=== PATIENT | female | born 1940 | race Caucasian/White ===

== ENCOUNTER 2017-02-03 15:24 | Emergency (ER) | payer MEDICARE ==
[~2017-02-03] VITALS: Ht 180.3 cm; Wt 93.0 kg
[~2017-02-03 15:24] MED LIST: AMLODIPINE5 MG PO; ASPIRIN EC325 MG PO; ASPIRIN EC81 MG PO; BENAZEPRIL20 M1 OR; CALTRATE 600 PO; CARVEDILOL25 MG PO; CEPHALEXIN500 MG OR; CEPHALEXIN500 MG PO; CIPRO XR500 MG PO; CIPROFLOXACIN500 M1 PO; CIPROFLOXACN500 MG PO; CLONIDINE0.1 MG PO; COREG6.25 MG OR; COUMADIN5 MG PO; DIGOXIN0.125 MG OR; DIGOXIN0.125 MG PO; DULCOLAX10 MG RE; ECOTRIN325 MG OR; FLEET RE; FLEXERIL PO; FUROSEMIDE40 MG OR; FUROSEMIDE40 MG PO; HYDROCO/APAP1 TA9 PO; HYDROCODONE/IBU1 TA1 PO; KLOR-CON 1010 MEQ OR; KLOR-CON 1010 MEQ PO; LEVOTHYROXIN50 MCG OR; LORTAB 1010 MG PO; LOSARTAN POT100 MG PO; LOSARTAN POT50 MG PO; MILK OF MAG30 ML/UDC PO; MULTIVITAL-M PO; NEXIUM40 MG PO; NORCO1 TA1 PO; NORCO1 TA2 PO; NORCO1 TAB PO; NORMAL SALIN0.91 IV; OXYBUTYNIN5 MG OR; OXYBUTYNIN5 MG PO; PAROXETINE20 MG OR; PAROXETINE20 MG PO; PAROXETINE40 MG PO; SOTALOL HCL80 MG OR; TYLENOL325 M1 PO; TYLENOL325 MG PO; VANCOMYCIN HCL1 GM IV; WARFARIN2.5 MG OR; WARFARIN2.5 MG PO; WARFARIN4 MG OR; WARFARIN5 MG OR; WARFARIN5 MG PO; ZOFRAN ODT4 MG PO; [UNRECOGNIZED DRUG - OTHER] IV; [UNRECOGNIZED DRUG - OTHER] PO
[2017-02-03 16:33] VITALS: BP 138/76
== END 2017-02-03 16:40 | disposition home or self-care (01) ==
LOC: ED 15:24
DX: R04.0 Epistaxis (principal); I10 Essential (primary) hypertension; I25.10 Atherosclerotic heart disease of native coronary artery without angina pectoris; I48.91 Unspecified atrial fibrillation; E03.9 Hypothyroidism, unspecified; Z95.0 Presence of cardiac pacemaker; Z79.01 Long term (current) use of anticoagulants

== ENCOUNTER 2017-12-29 06:50 | Day surgery (SDC) | payer MEDICARE ==
[~2017-12-29] VITALS: Ht 180.3 cm; Wt 85.7 kg
[~2017-12-29 06:50] MED LIST changes: +CALTRATE 600+D1 CHW PO; +HYDROCODONE PO; +LEVOTHYROXIN50 MCG PO; +LOSARTAN POTASS50 MG PO; +OXYBUTYNIN5 M1 PO; +POTASSIUM CHLO10 MEQ PO
[2017-12-29 09:40] VITALS: BP 163/95
== END 2017-12-29 09:45 | disposition home or self-care (01) ==
LOC: ENDO 06:50 → ORM 09:15 → ENDO 09:45
PROVIDERS: ATTEND Surgery
PROC: 0DBN8ZX Excision of Sigmoid Colon, Via Natural or Artificial Opening Endoscopic, Diagnostic (ICD-10-PCS; principal; 2017-12-29)
PROC: 3E0H8GC Introduction of Other Therapeutic Substance into Lower GI, Via Natural or Artificial Opening Endoscopic (ICD-10-PCS; 2017-12-29)
DX: D12.5 Benign neoplasm of sigmoid colon (principal); K57.30 Diverticulosis of large intestine without perforation or abscess without bleeding; R91.1 Solitary pulmonary nodule; Z85.3 Personal history of malignant neoplasm of breast

== ENCOUNTER 2018-01-07 17:00 | Observation (INO) | payer MEDICARE ==
[~2018-01-07] VITALS: Ht 180.3 cm; Wt 85.7 kg
[2018-01-07] MEDS ORDERED: HYDROCODONE/ACE1 TAB PO (18:20)
[2018-01-07 19:25] LABS: HEMATOCRIT 35.1 % (37.0-47.0); HEMOGLOBIN 11.4 g/dl (12.0-16.0); IMMATURE GRANULOCYTES 0.5 % (0.0-1.0); MEAN CELL VOLUME 85.2 fL CALC (80.0-100.0); MEAN CORPUSCULAR HGB 27.7 pG CALC (26.0-32.0); MEAN CORPUSCULAR HGB CONC 32.5 g/L CALC (32.0-36.0); NEUT# 13.09 thou/uL (2.00-7.15); RED BLOOD COUNT 4.12 mill/uL (4.20-5.60); RED CELL DISTRI WIDTH 14.6 % (11.5-15.5)
[2018-01-07 19:34] LABS: ANION GAP 11 (6-22 (CALC)); BUN 11 mg/dL (8-23); BUN/CREATININE RATIO 18 (12-20 (CALC)); CARBON DIOXIDE 26 mmol/l (22-30); CHLORIDE 103 mmol/l (95-108); CREATININE 0.6 mg/dL (0.5-1.0); GFR > 60 ML/MIN (>=60 (CALC)); GFR FOR AFR.AMER. > 60 ML/MIN (>=60 (CALC)); POTASSIUM 4.4 mmol/l (3.5-5.1); SODIUM 136 mmol/l (137-146)
[2018-01-07 19:36] LABS: INFLUENZA A NONE DETECTED (NONE DETECT); INFLUENZA B NONE DETECTED (NONE DETECT)
[2018-01-07 20:02] LABS: URINE BILIRUBIN - DIPSTICK NEGATIVE (NEGATIVE); URINE BLOOD DIPSTICK TRACE-INTACT (NEGATIVE); URINE COLOR YELLOW; URINE GLUCOSE - DIPSTICK NEGATIVE (NEGATIVE); URINE KETONE NEGATIVE (NEGATIVE); URINE LEUK ESTERASE NEGATIVE (NEGATIVE); URINE NITRITE - DIPSTICK NEGATIVE (Negative); URINE PH 6.5 (4.5-8.0); URINE PROTEIN - DIPSTICK 30 mg/dL (NEG-TRACE); URINE UROBILINOGEN - DIPSTICK 0.2 E.U./dL (0.2)
[2018-01-07 20:14] LABS: URINE CLARITY CLEAR
[2018-01-07 20:28] LABS: URINE MUCUS FEW hpf (NONE-FEW); URINE SQUAMOUS EPITHELIAL CELL FEW EPI/hpf (0-FEW)
[2018-01-07 21:20] VITALS: BP 144/69
[2018-01-08 00:33] VITALS: BP 155/83
[2018-01-08 05:45] VITALS: BP 117/61
[2018-01-08 08:13] VITALS: BP 118/79
[2018-01-08 09:26] LABS: HEMATOCRIT 32.6 % (37.0-47.0); HEMOGLOBIN 10.6 g/dl (12.0-16.0); IMMATURE GRANULOCYTES 0.5 % (0.0-1.0); MEAN CORPUSCULAR HGB CONC 32.5 g/L CALC (32.0-36.0); NEUT# 11.64 thou/uL (2.00-7.15); RED BLOOD COUNT 3.79 mill/uL (4.20-5.60); RED CELL DISTRI WIDTH 14.5 % (11.5-15.5)
[2018-01-08 09:40] LABS: INTERNATIONAL NORMALIZED RATIO 2.3 RATIO (0.7-1.3); PROTHROMBIN TIME 25.6 SECONDS (9.0-12.5)
[2018-01-08 09:45] LABS: ANION GAP 12 (6-22 (CALC)); BUN 11 mg/dL (8-23); BUN/CREATININE RATIO 19 (12-20 (CALC)); CARBON DIOXIDE 28 mmol/l (22-30); CHLORIDE 106 mmol/l (95-108); CREATININE 0.6 mg/dL (0.5-1.0); GFR > 60 ML/MIN (>=60 (CALC)); GFR FOR AFR.AMER. > 60 ML/MIN (>=60 (CALC)); SODIUM 142 mmol/l (137-146)
[2018-01-08 09:47] LABS: CHOLESTEROL HDL RATIO 3.5 (<4.4 (CALC)); MAGNESIUM 1.9 mg/dL (1.6-2.3)
[2018-01-08 09:56] LABS: POTASSIUM 3.5 mmol/l (3.5-5.1)
[2018-01-08 19:20] VITALS: BP 119/70
[2018-01-09 04:30] VITALS: BP 120/74
[2018-01-09 05:01] LABS: HEMATOCRIT 34.6 % (37.0-47.0); HEMOGLOBIN 11.1 g/dl (12.0-16.0); IMMATURE GRANULOCYTES 0.6 % (0.0-1.0); MEAN CELL VOLUME 86.7 fL CALC (80.0-100.0); MEAN CORPUSCULAR HGB 27.8 pG CALC (26.0-32.0); MEAN CORPUSCULAR HGB CONC 32.1 g/L CALC (32.0-36.0); NEUT# 9.66 thou/uL (2.00-7.15); RED BLOOD COUNT 3.99 mill/uL (4.20-5.60); RED CELL DISTRI WIDTH 14.1 % (11.5-15.5)
[2018-01-09 05:05] LABS: INTERNATIONAL NORMALIZED RATIO 2.4 RATIO (0.7-1.3); PROTHROMBIN TIME 27.7 SECONDS (9.0-12.5)
[2018-01-09 05:09] LABS: ANION GAP 15 (6-22 (CALC)); BUN 18 mg/dL (8-23); BUN/CREATININE RATIO 31 (12-20 (CALC)); CARBON DIOXIDE 26 mmol/l (22-30); CHLORIDE 105 mmol/l (95-108); CREATININE 0.6 mg/dL (0.5-1.0); GFR > 60 ML/MIN (>=60 (CALC)); GFR FOR AFR.AMER. > 60 ML/MIN (>=60 (CALC)); MAGNESIUM 1.9 mg/dL (1.6-2.3); POTASSIUM 3.9 mmol/l (3.5-5.1); SODIUM 142 mmol/l (137-146)
[2018-01-09 07:19] VITALS: BP 122/62
[2018-01-09] MEDS ORDERED: PREDNISONE10 MG PO (11:31)
[2018-01-09] MEDS ORDERED: LEVAQUIN750 MG PO (11:31)
[2018-01-09 12:00] VITALS: BP 108/62
== END 2018-01-09 14:00 | disposition home or self-care (01) ==
LOC: ED 17:00 → ED-I 20:00 → ED 20:21 → MS2 20:22
PROVIDERS: Family Medicine; Nurse Practitioner Family; ADMIT Internal Medicine; ATTEND Internal Medicine
DX: J44.0 Chronic obstructive pulmonary disease with (acute) lower respiratory infection (principal); J18.9 Pneumonia, unspecified organism; I10 Essential (primary) hypertension; F41.9 Anxiety disorder, unspecified; F32.9 Major depressive disorder, single episode, unspecified; E03.9 Hypothyroidism, unspecified; I48.2 Chronic atrial fibrillation; G89.29 Other chronic pain; M54.9 Dorsalgia, unspecified; E55.9 Vitamin D deficiency, unspecified; Z85.3 Personal history of malignant neoplasm of breast; Z77.22 Contact with and (suspected) exposure to environmental tobacco smoke (acute) (chronic); Z95.0 Presence of cardiac pacemaker; Z79.01 Long term (current) use of anticoagulants

== ENCOUNTER 2018-01-19 07:43 | Emergency (ER) | payer MEDICARE ==
[~2018-01-19] VITALS: Ht 180.3 cm; Wt 85.0 kg
[~2018-01-19 07:43] MED LIST changes: +HYDROCODONE/ACE1 TAB PO; +LEVAQUIN750 MG PO; +PREDNISONE10 MG PO
[2018-01-19 09:29] VITALS: BP 166/84
== END 2018-01-19 09:46 | disposition home or self-care (01) ==
LOC: ED 07:43
DX: S39.012A Strain of muscle, fascia and tendon of lower back, initial encounter (principal); M47.817 Spondylosis without myelopathy or radiculopathy, lumbosacral region; M48.54XA Collapsed vertebra, not elsewhere classified, thoracic region, initial encounter for fracture; Z95.0 Presence of cardiac pacemaker; I10 Essential (primary) hypertension; I48.91 Unspecified atrial fibrillation; Z79.01 Long term (current) use of anticoagulants

== ENCOUNTER 2018-02-09 08:17 | Day surgery (SDC) | payer MEDICARE ==
[~2018-02-09] VITALS: Ht 180.3 cm; Wt 84.4 kg
[~2018-02-09 08:17] MED LIST changes: +FUROSEMIDE20 MG PO
[2018-02-09 11:09] VITALS: BP 141/76
== END 2018-02-09 11:25 | disposition home or self-care (01) ==
LOC: ENDO 08:17
PROVIDERS: ATTEND Surgery
PROC: 0DBP7ZZ Excision of Rectum, Via Natural or Artificial Opening (ICD-10-PCS; principal; 2018-02-09)
DX: K62.1 Rectal polyp (principal); R91.1 Solitary pulmonary nodule; Z85.3 Personal history of malignant neoplasm of breast; Z90.13 Acquired absence of bilateral breasts and nipples
CPT/HCPCS: J2710

== ENCOUNTER 2020-08-13 16:15 | Observation (INO) | payer MEDICARE ==
[~2020-08-13] VITALS: Ht 180.3 cm; Wt 62.6 kg
--- NOTE | 2020-08-13 17:00 | NUR ---
PT ARRIVES TO ROOM 271 VIA WHEELCHAIR FROM [facility] A DIRECT ADMIT FOR SUPERTHERAPEUTIC INR. PT PLACED INTO GOWN, ORDERS REVIEWED WITH PT, IV STARTED WITH BLOOD DRAW. PT ASKED TO CALL IF SHE NEEDS TO GO TO [place], AGREES THAT SHE WILL CALL BEFORE ATTEMPTING ON HER OWN. DANGERS OF HIGH INR REVIEWED WITH PT.
[2020-08-13 17:05] VITALS: BP 134/78
[2020-08-13 17:31] LABS: HEMATOCRIT 37.8 % (37.0-47.0); HEMOGLOBIN 11.9 g/dl (12.0-16.0); IMMATURE GRANULOCYTES 0.2 % (0.0-5.0); MEAN CELL VOLUME 88.3 fL CALC (80.0-100.0); MEAN CORPUSCULAR HGB 27.8 pG CALC (26.0-32.0); MEAN CORPUSCULAR HGB CONC 31.5 g/dL CAL (32.0-36.0); NEUT# 6.85 thou/uL (2.00-7.15); RED BLOOD COUNT 4.28 mill/uL (4.20-5.60)
[2020-08-13 17:47] LABS: ALBUMIN 3.7 g/dL (3.2-5.0); ALKALINE PHOSPHATASE 92 u/l (38-126); ANION GAP 10 (6-22 (CALC)); BILIRUBIN, TOTAL 0.5 mg/dL (0.0-1.4); BUN 26 mg/dL (8-23); BUN/CREATININE RATIO 27 (12-20 (CALC)); CARBON DIOXIDE 31 mmol/l (22-30); CHLORIDE 101 mmol/l (95-108); GFR 54 ML/MIN (>=60 (CALC)); GFR FOR AFR.AMER. > 60 ML/MIN (>=60 (CALC)); POTASSIUM 4.1 mmol/l (3.5-5.1); SGOT/AST 25 u/l (9-36); SODIUM 139 mmol/l (137-146); TOTAL PROTEIN 7.2 g/dL (6.3-8.2)
[2020-08-13 19:00] VITALS: BP 140/69
--- NOTE | 2020-08-13 19:00 | NUR ---
REPORT RECEIVED FROM Dennis COOL RN, CARE OF PT ASSUMED AT THIS TIME.
--- NOTE | 2020-08-13 20:15 | NUR ---
PHYSICAL ASSESMENT COMPLETE. PT CURRENTLY DENIES PAIN OR DISCOMFORT. SCHEDULED MEDS ADMINISTERED, SEE E-MAR. WARM BLANKET AND HOT TEA PROVIDED PER PTS REQUEST. PT DENIES FURTHER NEEDS AT THIS TIME. ONE UNIT PRBC PENDING FROM ANOTHER FACILITY. PLAN OF CARE REVIEWED, PT DENIES QUESTIONS, VERBALIZES UNDERSTANDING. ITEMS WITHIN REACH, BED LOCKED IN LOW POSITION W/ BEDRAILS UP X2. CALL OLSEN WITHIN REACH, AGREES TO CALL PRN.
--- NOTE | 2020-08-14 00:15 | NUR ---
PT SITTING UP IN BED WATCHING TV. DENIES NEEDS AT THIS TIME. CALL OLSEN REMAINS WITHIN REACH, AGREES TO CALL PRN.
[2020-08-14 00:40] VITALS: BP 138/78
--- NOTE | 2020-08-14 04:40 | NUR ---
PT APPEARS TO BE SLEEPING COMFORTABLY, NO APPARENT DISTRESS, RESPIRATIONS REGULAR AND UNLABORED. ITEMS REMAIN WITHIN REACH, BED REMAINS LOCKED IN LOW POSITION W/ BEDRAILS UP X2. CALL OLSEN REMAINS WITHIN REACH.
[2020-08-14 05:01] VITALS: BP 148/81
[2020-08-14 05:27] LABS: HEMATOCRIT 37.9 % (37.0-47.0); HEMOGLOBIN 11.8 g/dl (12.0-16.0); IMMATURE GRANULOCYTES 0.4 % (0.0-5.0); MEAN CELL VOLUME 88.3 fL CALC (80.0-100.0); MEAN CORPUSCULAR HGB 27.5 pG CALC (26.0-32.0); MEAN CORPUSCULAR HGB CONC 31.1 g/dL CAL (32.0-36.0); NEUT# 6.77 thou/uL (2.00-7.15); RED BLOOD COUNT 4.29 mill/uL (4.20-5.60); RED CELL DISTRI WIDTH 13.8 % (11.5-15.5)
[2020-08-14 06:21] LABS: INTERNATIONAL NORMALIZED RATIO 2.4 RATIO (0.7-1.3); PROTHROMBIN TIME 23.4 SECONDS (9.0-12.5)
[2020-08-14 07:10] VITALS: BP 151/86
--- NOTE | 2020-08-14 07:10 | NUR ---
PT SITTING IN BED. A&O X3. NO DISTRESS NOTED. PT DENIES ANY PAIN AT THIS TIME. [place]ISTED [place] [facility]ADY SLOW GAIT OBSERVED. NO OTHER NEEDS AT THIS TIME. ASSESSMENT COMPLETED. DISCUSSED POC. CALL LIGHT IN REACH. CONTINUE TO MONITOR.
[2020-08-14 09:37] VITALS: BP 151/86
[2020-08-14] MEDS ORDERED: JANTOVEN2.5 MG PO (10:36)
[2020-08-14] MEDS ORDERED: WARFARIN5 MG PO (10:37)
[2020-08-14] MEDS ORDERED: [UNRECOGNIZED DRUG - OTHER] PO (10:41)
--- NOTE | 2020-08-14 12:22 | NUR ---
Discharge instructions given. Patient verbalizes understanding of same. Pt encouraged to return if worsening symptoms arrise. Explained pt new warfarin dosages and the days. Encouraged pt to follow up with pcp and monitor INR levels frequently. Discharged in stable condition via wheelchair to home accompanied by staff and spouse. All belongings sent with pt.
== END 2020-08-14 12:23 | disposition home or self-care (01) ==
LOC: MS2 16:15
PROVIDERS: ADMIT Internal Medicine; ATTEND Internal Medicine
DX: R79.1 Abnormal coagulation profile (principal); T45.515A Adverse effect of anticoagulants, initial encounter; I48.20 Chronic atrial fibrillation, unspecified; F41.9 Anxiety disorder, unspecified; F32.9 Major depressive disorder, single episode, unspecified; E03.9 Hypothyroidism, unspecified; I10 Essential (primary) hypertension; E55.9 Vitamin D deficiency, unspecified; Z95.0 Presence of cardiac pacemaker; Z23 Encounter for immunization; Z51.81 Encounter for therapeutic drug level monitoring; Z79.01 Long term (current) use of anticoagulants

== ENCOUNTER 2020-12-08 10:32 | Emergency (ER) | payer MEDICARE ==
[~2020-12-08] VITALS: Ht 180.3 cm; Wt 69.5 kg
[~2020-12-08 10:32] MED LIST changes: +JANTOVEN2.5 MG PO; +[UNRECOGNIZED DRUG - OTHER] PO
[2020-12-08 11:28] LABS: HEMATOCRIT 35.5 % (37.0-47.0); HEMOGLOBIN 11.1 g/dl (12.0-16.0); IMMATURE GRANULOCYTES 0.7 % (0.0-5.0); MEAN CORPUSCULAR HGB 26.9 pG CALC (26.0-32.0); MEAN CORPUSCULAR HGB CONC 31.3 g/dL CAL (32.0-36.0); NEUT# 8.02 thou/uL (2.00-7.15); RED BLOOD COUNT 4.13 mill/uL (4.20-5.60); RED CELL DISTRI WIDTH 15.4 % (11.5-15.5)
[2020-12-08 11:49] LABS: ACT PARTIAL THROMBO TIME 44.2 SECONDS (20.0-32.5); ALBUMIN 3.4 g/dL (3.2-5.0); ALKALINE PHOSPHATASE 69 u/l (38-126); ANION GAP 8 (6-22 (CALC)); BILIRUBIN, TOTAL 0.6 mg/dL (0.0-1.4); BUN 10 mg/dL (8-23); BUN/CREATININE RATIO 16 (12-20 (CALC)); CARBON DIOXIDE 33 mmol/l (22-30); CHLORIDE 100 mmol/l (95-108); CREATININE 0.6 mg/dL (0.5-1.0); GFR > 60 ML/MIN (>=60 (CALC)); GFR FOR AFR.AMER. > 60 ML/MIN (>=60 (CALC)); POTASSIUM 3.7 mmol/l (3.5-5.1); SGOT/AST 20 u/l (9-36); SODIUM 137 mmol/l (137-146); TOTAL PROTEIN 6.5 g/dL (6.3-8.2)
[2020-12-08 12:14] LABS: INTERNATIONAL NORMALIZED RATIO 6.3 RATIO (0.7-1.3); PROTHROMBIN TIME 57.7 SECONDS (9.0-12.5)
[2020-12-08 12:45] VITALS: BP 132/76
== END 2020-12-08 12:45 | disposition home or self-care (01) ==
LOC: ED 10:32
DX: S80.11XA Contusion of right lower leg, initial encounter (principal); R79.1 Abnormal coagulation profile; T45.515A Adverse effect of anticoagulants, initial encounter; I10 Essential (primary) hypertension; F41.9 Anxiety disorder, unspecified; F32.9 Major depressive disorder, single episode, unspecified; I48.91 Unspecified atrial fibrillation; W01.0XXA Fall on same level from slipping, tripping and stumbling without subsequent striking against object, initial encounter; Y92.009 Unspecified place in unspecified non-institutional (private) residence as the place of occurrence of the external cause; Z79.01 Long term (current) use of anticoagulants; Z95.0 Presence of cardiac pacemaker

== ENCOUNTER 2021-01-01 10:33 | Inpatient (IN) | payer MEDICARE ==
[~2021-01-01] VITALS: Ht 180.3 cm; Wt 68.0 kg
--- NOTE | 2021-01-01 10:33 | NUR ---
PATIENT TO ROOM VIA WHEELCHAIR AND PHYSICIAN NOTIFIED OF PATIENT STATUS
--- NOTE | 2021-01-01 11:11 | NUR ---
MED REC COMPLETED AT THIS TIME PER PT MEDS HAVE NOT CHANGED IN TWENTY YEARS AND TOOK ALL OF THEM THIS MORNING.
[2021-01-01 11:37] LABS: HEMATOCRIT 34.3 % (37.0-47.0); HEMOGLOBIN 10.4 g/dl (12.0-16.0); IMMATURE GRANULOCYTES 0.5 % (0.0-5.0); MEAN CELL VOLUME 88.4 fL CALC (80.0-100.0); MEAN CORPUSCULAR HGB 26.8 pG CALC (26.0-32.0); MEAN CORPUSCULAR HGB CONC 30.3 g/dL CAL (32.0-36.0); NEUT# 6.26 thou/uL (2.00-7.15); RED BLOOD COUNT 3.88 mill/uL (4.20-5.60); RED CELL DISTRI WIDTH 15.1 % (11.5-15.5)
[2021-01-01 11:51] LABS: ALBUMIN 3.5 g/dL (3.2-5.0); ALKALINE PHOSPHATASE 71 u/l (38-126); ANION GAP 9 (6-22 (CALC)); BUN 16 mg/dL (8-23); BUN/CREATININE RATIO 22 (12-20 (CALC)); CARBON DIOXIDE 36 mmol/l (22-30); CHLORIDE 101 mmol/l (95-108); CREATININE 0.7 mg/dL (0.5-1.0); GFR > 60 ML/MIN (>=60 (CALC)); GFR FOR AFR.AMER. > 60 ML/MIN (>=60 (CALC)); POTASSIUM 3.8 mmol/l (3.5-5.1); SGOT/AST 17 u/l (9-36); SODIUM 141 mmol/l (137-146); TOTAL PROTEIN 6.5 g/dL (6.3-8.2)
[2021-01-01 11:52] LABS: BILIRUBIN, TOTAL 1.1 mg/dL (0.0-1.4)
[2021-01-01 12:03] LABS: MYOGLOBIN 37 ng/mL (0 - 62)
--- NOTE | 2021-01-01 12:21 | NUR ---
PT TO RADIOLOGY AT THIS TIME FOR CT SCAN
--- NOTE | 2021-01-01 13:30 | NUR ---
PT RESTING COMFORTABKLY ON STRETCHER. PT AWARE OF PENDING ADMIT. SPOUSE AT BEDSIDE WILL CONTINUE TO MONITOR.
--- NOTE | 2021-01-01 14:15 | NUR ---
PT ASSISTED UP TO BATHROOM UA SAMPLE OBTAINED. PT THEN ASSISTED BACK TO BED. APPLE JUICE PROVIDED
--- NOTE | 2021-01-01 14:31 | NUR ---
REPORT CALLED TO CARMINE WADE.
--- NOTE | 2021-01-01 14:40 | NUR ---
PT TO MED SURG ROOM 262 VIA WHEELCHAIR
--- NOTE | 2021-01-01 14:42 | NUR ---
PT ARRIVED FROM ER VIA WC WITH STAFF. IV SITE AND TELE MONITOR IN PLACE.
[2021-01-01 15:00] VITALS: BP 117/69
[2021-01-01 15:12] LABS: URINE BILIRUBIN - DIPSTICK NEGATIVE (NEGATIVE); URINE BLOOD DIPSTICK NEGATIVE (NEGATIVE); URINE COLOR YELLOW; URINE GLUCOSE - DIPSTICK NEGATIVE (NEGATIVE); URINE KETONE NEGATIVE (NEGATIVE); URINE LEUK ESTERASE NEGATIVE (NEGATIVE); URINE NITRITE - DIPSTICK NEGATIVE (Negative); URINE PROTEIN - DIPSTICK 30 mg/dL (NEG-TRACE); URINE SPECIFIC GRAVITY 1.015
[2021-01-01 15:22] LABS: URINE SQUAMOUS EPITHELIAL CELL FEW EPI/hpf (0-FEW)
--- NOTE | 2021-01-01 15:25 | NUR ---
ASSESSMENT IS COMPLETED: IV SITE IS FREE FROM REDNESS OR EDEMA. HR IS REG,PULSES ARE STRONG X4, ABD IS SOFT WITH ACTIVE BS. TELE MONITOR IN PLACE/ BREATH SOUNDS ARE CLEAR, O2 @ 4LITERS WITH NC.
--- NOTE | 2021-01-01 18:04 | NUR ---
PT HAS BEEN AMBULATING IN THE ROOM. IV SITE IS FREE FROM REDNESS OR EDEMA.
[2021-01-01 18:51] VITALS: BP 113/66
--- NOTE | 2021-01-01 19:00 | NUR ---
REPORT RECEIVED FROM Jonna WISEMAN LPN, CARE OF PT ASSUMED AT THIS TIME.
--- NOTE | 2021-01-01 20:50 | NUR ---
PT SUPINE IN BED, SITS UP INDEPENDENTLY. PHYSICAL ASSESMENT COMPLETE. A/0X3, PLEASANT AND COOPERATIVE. RESPIRATIONS REGULAR AND UNLABORED AT REST. PT ON ROOM AIR. LUNGS CLEAR WITH DIMINISHED BASES ON LEFT SIDE AND WHEEZES WITH DIMINISHED BASES ON RIGHT SIDE. REPORTS INTERMITTENT DRY COUGH. DENIES OR GI SYMPTOMS/COMPLAINTS. SKIN APPEARS INTACT. R-AC #20G PATENT AND SALINE LOCKED. PLAN OF CARE REVIEWED, PT IS ENGAGED AND PARTICIPATES IN TEACHING. VERBALIZES UNDERSTANDING AND DENIES QUESTIONS. PT DENIES NEEDS AT THIS TIME. CALL OLSEN WITHIN REACH, AGREES TO CALL PRN. BED LOCKED IN LOW POSITION WITH BEDRAILS UP X2.
[2021-01-01 23:55] VITALS: BP 118/71
--- NOTE | 2021-01-02 | NUR ---
PT APPEARS TO BE SLEEPING COMFORTABLY, LAYING IN BED WITH EYES CLOSED, RESPIRATIONS REGULAR AND UNLABORED, NO APPARENT DISTRESS. CALL OLSEN REMAIN WITHIN REACH. BED REMAINS LOCKED IN LOW POSITION WITH BEDRAIL UP X2.
[2021-01-02 04:00] VITALS: BP 113/72
[2021-01-02 05:50] LABS: HEMATOCRIT 37.6 % (37.0-47.0); HEMOGLOBIN 11.2 g/dl (12.0-16.0); IMMATURE GRANULOCYTES 0.9 % (0.0-5.0); MEAN CELL VOLUME 88.5 fL CALC (80.0-100.0); MEAN CORPUSCULAR HGB 26.4 pG CALC (26.0-32.0); MEAN CORPUSCULAR HGB CONC 29.8 g/dL CAL (32.0-36.0); NEUT# 4.17 thou/uL (2.00-7.15); RED BLOOD COUNT 4.25 mill/uL (4.20-5.60)
[2021-01-02 06:20] LABS: MAGNESIUM 1.9 mg/dL (1.6-2.3)
[2021-01-02 06:27] LABS: CHOLESTEROL HDL RATIO 3.2 (<4.4 (CALC)); DIGOXIN 1.3 ng/mL (0.8-2.0)
[2021-01-02 06:30] LABS: INTERNATIONAL NORMALIZED RATIO 5.4 RATIO (0.7-1.3)
--- NOTE | 2021-01-02 06:37 | NUR ---
PT/INR 54/5.4, REPORTED TO DR. HERRERA, COUMADIN ALREADY ON HOLD, WILL CONT' TO HOLD, NO FURTHER ORDERS AT THIS TIME.
--- NOTE | 2021-01-02 07:05 | NUR ---
PT ARTUR AEROSOLIZED BRONCHODILATOR HERAPY WELL. NO ACUTE DISTRESS NOTED. VITAL SIGNS STABLE. GENERATOR ASSEMBLER TO MONITOR. WEANED O2 TO 1LPM NC PER PT SPO2.
[2021-01-02 07:50] VITALS: BP 115/56
--- NOTE | 2021-01-02 07:50 | NUR ---
ASSESSMENT IS COMPLETED: IV SITE IS FREE FROM REDNESS OR EDEMA. HR IS REG,PULSES ARE STRONG X4, ABD IS SOFT WITH ACTIVE BS. BREATH SOUNDS ARE WHEEZINGAUDIBLE, DIMINSHED AND CLEAR, O2 @ 2 LITERS WITH NC. PT DID HAVE O2 OFF LAST NIGHT. AND AMBULATED IN THE ROOM.
--- NOTE | 2021-01-02 10:00 | NUR ---
RAC IV SITE BECAME A LITTLE PINK, AND WAS LEAKING , IV WAS TAKEN OUT. CATHETER INTACT.
--- NOTE | 2021-01-02 10:05 | NUR ---
NEW IV SITE IN LW WITH #22 BY Christelle TAMAYO AND PT TOLERATED WELL.
[2021-01-02 10:30] VITALS: BP 115/68
[2021-01-02] MEDS ORDERED: TRELEGY ELLIPTA1 AER IN (11:32)
[2021-01-02] MEDS ORDERED: HYDROCO/APAP1 TA9 PO (11:35)
--- NOTE | 2021-01-02 12:00 | NUR ---
PT HAS BEEN RELAXING IN BED WITH NO DISTRESS NOTED. IV SITE IS FREE FROM RENDESS OR EDEMA.
--- NOTE | 2021-01-02 12:03 | NUR ---
PHYSICAL THERAPY IN TO VISIT WITH PT. NEEDS TO HAVE O2
[2021-01-02 15:00] VITALS: BP 114/60
--- NOTE | 2021-01-02 16:00 | NUR ---
PT IS RELAXING IN BED WITH NO DISTRESS NOTED. IV SITE IS FREE FROM REDNESS OR EDEMA.
--- NOTE | 2021-01-02 16:12 | NUR ---
pt c exp whz in RUL and [facility]. no acute signs of distress. pt talking in full sentences and appropriate orientation. vital signs stable. o2 weaned today. pt veronica well. senior it specialist to monitor.
--- NOTE | 2021-01-02 19:00 | NUR ---
REPORT RECEIVED FROM Jonna WISEMAN LPN, CARE OF PT ASSUMED AT THIS TIME.
[2021-01-02 19:08] VITALS: BP 120/81
--- NOTE | 2021-01-02 20:50 | NUR ---
PT LAYING IN BED SEMI-FOWLERS, SITS UP INDEPENDENTLY. PHYSICAL ASSESMENT COMPLETE. A/0X3, PLEASANT AND COOPERATIVE. RESPIRATIONS REGULAR AND UNLABORED AT REST. PT ON ROOM AIR. LUNGS CLEAR WITH DIMINISHED BASES ON LEFT SIDE AND WHEEZES WITH DIMINISHED BASES ON RIGHT SIDE. REPORTS INTERMITTENT DRY COUGH. DENIES OR GI SYMPTOMS/COMPLAINTS. SKIN APPEARS INTACT. L-WRIST #22G PATENT AND SALINE LOCKED. SCHEDULED MEDICATIONS ADMINISTERED, SEE E-MAR.PLAN OF CARE REVIEWED, PT IS ENGAGED AND PARTICIPATES IN TEACHING. VERBALIZES UNDERSTANDING AND DENIES QUESTIONS. PT DENIES NEEDS AT THIS TIME. CALL OLSEN WITHIN REACH, AGREES TO CALL PRN. BED LOCKED IN LOW POSITION WITH BEDRAILS UP X2.
[2021-01-03] VITALS: BP 125/60
[2021-01-03 04:42] VITALS: BP 120/78
[2021-01-03 05:46] LABS: HEMATOCRIT 35.8 % (37.0-47.0); HEMOGLOBIN 10.6 g/dl (12.0-16.0); MEAN CELL VOLUME 88.6 fL CALC (80.0-100.0); MEAN CORPUSCULAR HGB 26.2 pG CALC (26.0-32.0); MEAN CORPUSCULAR HGB CONC 29.6 g/dL CAL (32.0-36.0); RED BLOOD COUNT 4.04 mill/uL (4.20-5.60); RED CELL DISTRI WIDTH 15.1 % (11.5-15.5)
[2021-01-03 06:16] LABS: ANION GAP 10 (6-22 (CALC)); BUN 34 mg/dL (8-23); BUN/CREATININE RATIO 41 (12-20 (CALC)); CARBON DIOXIDE 33 mmol/l (22-30); CHLORIDE 100 mmol/l (95-108); CREATININE 0.8 mg/dL (0.5-1.0); GFR > 60 ML/MIN (>=60 (CALC)); GFR FOR AFR.AMER. > 60 ML/MIN (>=60 (CALC)); POTASSIUM 4.2 mmol/l (3.5-5.1); SODIUM 139 mmol/l (137-146)
[2021-01-03 06:20] LABS: INTERNATIONAL NORMALIZED RATIO 3.7 RATIO (0.7-1.3); PROTHROMBIN TIME 37.3 SECONDS (9.0-12.5)
--- NOTE | 2021-01-03 07:24 | NUR ---
PT AT BEDSIDE
--- NOTE | 2021-01-03 08:06 | NUR ---
DR BROWN AT BEDSIDE
--- NOTE | 2021-01-03 08:07 | NUR ---
PT RESTING IN BED COMFORTABLY. SPEAKING IN FULL SENTENCES. NAD. VSS. EDITOR MANAGING DIRECTOR TO MONITOR.
[2021-01-03 08:15] VITALS: BP 137/78
--- NOTE | 2021-01-03 08:15 | NUR ---
RECIEVED REPORT FROM RONI HUBBARD. PT RESTING IN SEMI FOLWERS POSITION. PT IS A/O X3. ASSESSMENT AND VITALS COMPLETED. BP 137/78, HR 70, O2 98% ON 2L NC. RESPIRATIONS ARE EVEN AND UNLABORED WITH NO DISTRESS NOTED. LUNG SOUND ARE CLEAR WITH SOME WHEEZING. HEART RHYTHM NORMAL WITH TELE IN PLACE. BOWEL SOUNDS ARE HYPOACTIVE. RADIAL PULSES STRONG. PEDAL PULSES WEAK. #22G LW FLUSHED, SITE LEAKING. NEW SITE TO BE OBTAINED. SKIN IS WARM AND INTACT WITH SCATTERED BRUISING NOTED. PT DENEIS OF ANY PAINS OR DISCOMFORTS AT THIS TIME. ALL SAFETY PRECAUTIONS ARE IN PLACE WITH CALL LIGHT IN REACH. WILL CONTINUE TO MONITOR.
--- NOTE | 2021-01-03 09:31 | NUR ---
ATTEMPTED TO START NEW IV, UNSUCCESSFUL X2.
--- NOTE | 2021-01-03 10:13 | NUR ---
#24 TO LAC INITIATED BY THIS PULLER MACHINE X2 ATTEMPTS. PT TOLERATED WELL. IV HEALTHY AND PATENT.
--- NOTE | 2021-01-03 10:13 | NUR ---
PT note Patient is seen for gait training and gait assessment. She is able to transfer out of bed independently to stand. She did not require an AD but did require NURSE OBGYN of 1 for ambualtion in room . She ambulated about 40 feet and was limited by dyspnea. She did not have her o2 in place and has told me she uses it intermittently. Her Am Pac score is unchanged from eval but tells me she would like to go home with home health. I agree with this as she is doing well funcitonally but needs continued rehab for strengthening and endurance training
[2021-01-03 10:30] VITALS: BP 130/66
--- NOTE | 2021-01-03 12:29 | NUR ---
#24G IN RAC INFILTRATED. IV THERAPY AT BEDSIDE TO ASSIST WITH NEW IV INSERTION.
--- NOTE | 2021-01-03 12:51 | NUR ---
NEW #24G STARTED IN LEFT HAND, SITE APPEARS HEALTHY AND PATENT. ANTIBIOTICS CONTINUED. #24G IN LAC REMOVED WITH CATHATER STILL INTACT. WILL CONTINUE TO MONITOR.
[2021-01-03 14:39] VITALS: BP 113/68
--- NOTE | 2021-01-03 15:44 | NUR ---
PT RESTING IN SEMI FOWLERS POSITION. RESPIRATIONS ARE EVEN AND UNLABORED ON 2L NC. #24G IN LH REMAINS.TELE MONITORING IN PLACE. PT DENIES OF ANY PAINS OR DISCOMFORTS AT THIS TIME. ALL SAFETY PRECAUTIONS ARE IN PLACE WITH CALL LIGHT IN REACH. WILL CONTINUE TO MONITOR.
--- NOTE | 2021-01-03 19:00 | NUR ---
REPORT RECEIVED FROM Marcos ROBERTS LPN, CARE OF PT ASSUMED AT THIS TIME.
[2021-01-03 19:30] VITALS: BP 120/66
--- NOTE | 2021-01-03 20:30 | NUR ---
PT LAYING IN BED SEMI-FOWLERS, SITS UP INDEPENDENTLY. PHYSICAL ASSESMENT COMPLETE. A/0X2, DISORIENTED TO PLACE BUT EASILY RE-ORIENTS, PLEASANT AND COOPERATIVE. RESPIRATIONS REGULAR AND UNLABORED AT REST. PT ON 2L 02 VIA NC. LUNGS CLEAR WITH DIMINISHED BASES BILATERALLY. DENIES SOB OR COUGH. DENIES OR GI SYMPTOMS/COMPLAINTS. SKIN APPEARS INTACT. L-WRIST #22G PATENT AND SALINE LOCKED. SCHEDULED MEDICATIONS ADMINISTERED, SEE E-MAR.PLAN OF CARE REVIEWED, PT IS ENGAGED AND PARTICIPATES IN TEACHING. VERBALIZES UNDERSTANDING AND DENIES QUESTIONS. PT DENIES NEEDS AT THIS TIME. CALL OLSEN WITHIN REACH, AGREES TO CALL PRN. BED LOCKED IN LOW POSITION WITH BEDRAILS UP X2.
[2021-01-04] VITALS: BP 113/63
[2021-01-04 04:10] VITALS: BP 117/64
[2021-01-04 05:33] LABS: HEMOGLOBIN 10.8 g/dl (12.0-16.0); IMMATURE GRANULOCYTES 0.6 % (0.0-5.0); MEAN CELL VOLUME 89.3 fL CALC (80.0-100.0); MEAN CORPUSCULAR HGB 26.8 pG CALC (26.0-32.0); NEUT# 7.74 thou/uL (2.00-7.15); RED BLOOD COUNT 4.03 mill/uL (4.20-5.60); RED CELL DISTRI WIDTH 15.2 % (11.5-15.5)
[2021-01-04 06:14] LABS: ALBUMIN 3.5 g/dL (3.2-5.0); ALKALINE PHOSPHATASE 60 u/l (38-126); BILIRUBIN, TOTAL 0.7 mg/dL (0.0-1.4); BUN 41 mg/dL (8-23); BUN/CREATININE RATIO 59 (12-20 (CALC)); CARBON DIOXIDE 33 mmol/l (22-30); CHLORIDE 99 mmol/l (95-108); CREATININE 0.7 mg/dL (0.5-1.0); GFR > 60 ML/MIN (>=60 (CALC)); GFR FOR AFR.AMER. > 60 ML/MIN (>=60 (CALC)); SGOT/AST 18 u/l (9-36); TOTAL PROTEIN 6.6 g/dL (6.3-8.2)
[2021-01-04 06:16] LABS: ANION GAP 11 (6-22 (CALC)); SODIUM 139 mmol/l (137-146)
--- NOTE | 2021-01-04 07:00 | NUR ---
RECIEVED REPORT FROM RONI HUBBARD
[2021-01-04 07:50] VITALS: BP 130/75
--- NOTE | 2021-01-04 07:50 | NUR ---
PT RESTING IN LOW FOWLERS POSITION. PT IS A/O X2. ASSESSMENT AND VITALS COMPLETED. BP 130/75, HR 82, O2 80% ON ROOM AIR. 2L NC REAPPLIED, O2 SAT 93%. RESPIRATIONS ARE EVEN AND UNLABORED WITH NO DISTRESS NOTED. LUNG SOUNDS ARE CLEAR. HEART RHYTHM NORMAL WITH TELE IN PLACE. BOWEL SOUNDS ARE ACTIVE. RADIAL AND PEDAL PULSES ARE STRONG. TRACE EDEMA NOTED TO BLE. HEMATOME NOTED TO RIGHT ARDON, SKIN IS REDDENED BUT INTACT. PT DENIES OF ANY PAINS OR DISCOMFORTS AT THIS TIME. ALL SAFETY PRECAUTIONS ARE IN PLACE WITH CALL LIGHT IN REACH AND BED ALARM ACTIVTED. PT ENCOURAGED TO CALL FOR ASSITANCE. WILL CONTINUE TO MONITOR.
--- NOTE | 2021-01-04 08:39 | NUR ---
PT SITTING ON SIDE OF BED, TALKING AND RESTING COMFORTABLY. NAD. VSS. CROSSWORD PUZZLE MAKER TO MONITOR.
--- NOTE | 2021-01-04 09:55 | NUR ---
DR HERRERA AT BEDSIDE
[2021-01-04 11:07] VITALS: BP 122/69
--- NOTE | 2021-01-04 11:40 | NUR ---
PT RESTING IN HIGH FOLWERS POSITION. RESPIRATIONS ARE EVEN AND UNLABORED ON 2L NC. IV ANTIBIOTICS INFUSING WITH EASE, SITE REMAINS HEALTHY AND PATENT.TELE MONITORING IN PLACE. PT DENIES OF ANY PAINS OR DISCOMFORTS. ALL SAFETY PRECAUTIONS ARE IN PLACE WITH CALL LIGHT IN REACH AND BED ALARM ACTIVATED. WILL CONTINUE TO MONITOR.
[2021-01-04] MEDS ORDERED: OXY1 (12:20)
[2021-01-04] MEDS ORDERED: MEDDOSEPAK PO (12:21)
--- NOTE | 2021-01-04 12:22 | NUR ---
PT LAYING IN BED COMFORTABLY. NAD. VSS. CUTTING TABLE OPERATOR TO MONITOR.
[2021-01-04] MEDS ORDERED: ZPAK PO ×2 (12:24→12:25)
[2021-01-04 12:25] LABS: INTERNATIONAL NORMALIZED RATIO 1.8 RATIO (0.7-1.3); PROTHROMBIN TIME 18.4 SECONDS (9.0-12.5)
--- NOTE | 2021-01-04 14:32 | NUR ---
PT EDUCATED ON DISCHARGE INSTRUCTIONS AND NEW MEDICATIONS. PT VERBLAIZED UNDERSTANDING. CALLED AND EDUCATED ON DISCHARGED INSTURCTIONS. IV REMOVED WITH CATHATER STILL INTACT. TELE MONITORING REMOVED, ER NOTIFIED. WAITING FOR TRANSPORTATION. ALL SAFETY PREACUTIONS ARE IN PLACE. WILL CONTINUE TO MONITOR.
--- NOTE | 2021-01-04 15:17 | NUR ---
Discharge instructions given. Patient verbalizes understanding of same. Discharged in stable condition via Wheelchair to Home with staff. All belongings sent with pt. PT DSICHARGED HOME VIA WHEELCHAIR IN STABLE CONDITION ACCOMPAINED BY GOLDIE PINEDO. PT DSICHARGED WITH [facility]. PT LEFT WITH ALL DISCHARGE INSTRUCTIONS AND HOME O2.
== END 2021-01-04 15:15 | DRG 190 ==
LOC: ED 10:33 → ED-I 13:05 → ED 13:37 → MS2 13:38
PROVIDERS: Emergency Medicine; Internal Medicine; Nurse Practitioner; ADMIT Internal Medicine; ATTEND Internal Medicine
DX: J44.1 Chronic obstructive pulmonary disease with (acute) exacerbation (principal); J18.9 Pneumonia, unspecified organism; I48.20 Chronic atrial fibrillation, unspecified; J44.0 Chronic obstructive pulmonary disease with (acute) lower respiratory infection; I11.0 Hypertensive heart disease with heart failure; I50.9 Heart failure, unspecified; E03.9 Hypothyroidism, unspecified; R09.02 Hypoxemia; F41.9 Anxiety disorder, unspecified; F32.9 Major depressive disorder, single episode, unspecified; R79.1 Abnormal coagulation profile; T45.515A Adverse effect of anticoagulants, initial encounter; S80.11XA Contusion of right lower leg, initial encounter; W19.XXXA Unspecified fall, initial encounter; Z85.3 Personal history of malignant neoplasm of breast; Z95.0 Presence of cardiac pacemaker; Z79.01 Long term (current) use of anticoagulants; Z90.2 Acquired absence of lung [part of]; Z20.822 Contact with and (suspected) exposure to COVID-19
CPT/HCPCS: Q9967

== ENCOUNTER 2021-09-25 11:26 | Emergency (ER) | payer MEDICARE ==
[~2021-09-25] VITALS: Ht 180.3 cm; Wt 66.2 kg
[~2021-09-25 11:26] MED LIST changes: +MEDDOSEPAK PO; +OXY1; +TRELEGY ELLIPTA1 AER IN; +ZPAK PO
[2021-09-25 12:05] VITALS: BP 133/70
[2021-09-25 12:27] LABS: URINE BILIRUBIN - DIPSTICK NEGATIVE (NEGATIVE); URINE BLOOD DIPSTICK NEGATIVE (NEGATIVE); URINE COLOR YELLOW; URINE GLUCOSE - DIPSTICK NEGATIVE (NEGATIVE); URINE KETONE NEGATIVE (NEGATIVE); URINE LEUK ESTERASE TRACE (NEGATIVE); URINE PROTEIN - DIPSTICK NEGATIVE (NEG-TRACE); URINE UROBILINOGEN - DIPSTICK 0.2 E.U./dL (0.2)
[2021-09-25 12:30] LABS: URINE NITRITE - DIPSTICK POSITIVE (Negative)
[2021-09-25 12:31] LABS: URINE BACTERIA MANY hpf; URINE EPITHELIAL CELLS MANY EPI/hpf (0-FEW)
[2021-09-25 12:48] LABS: HEMATOCRIT 31.9 % (37.0-47.0); HEMOGLOBIN 9.6 g/dl (12.0-16.0); IMMATURE GRANULOCYTES 0.6 % (0.0-5.0); MEAN CORPUSCULAR HGB 24.7 pG CALC (26.0-32.0); MEAN CORPUSCULAR HGB CONC 30.1 g/dL CAL (32.0-36.0); NEUT# 15.76 thou/uL (2.00-7.15); RED BLOOD COUNT 3.88 mill/uL (4.20-5.60); RED CELL DISTRI WIDTH 16.1 % (11.5-15.5)
[2021-09-25 12:49] LABS: MEAN CELL VOLUME 82.2 fL CALC (80.0-100.0)
[2021-09-25 12:58] LABS: ALBUMIN 3.1 g/dL (3.2-5.0); ANION GAP 8 (6-22 (CALC)); BILIRUBIN, TOTAL 0.5 mg/dL (0.0-1.4); CARBON DIOXIDE 36 mmol/l (22-30); CHLORIDE 99 mmol/l (95-108); CREATININE 0.5 mg/dL (0.5-1.0); ETHYL ALCOHOL 0 mg/dl (0-30); GFR > 60 ML/MIN (>=60 (CALC)); GFR FOR AFR.AMER. > 60 ML/MIN (>=60 (CALC)); LIPASE 22 u/l (23-300); MAGNESIUM 1.7 mg/dL (1.6-2.3); POTASSIUM 3.8 mmol/l (3.5-5.1); SGOT/AST 17 u/l (9-36); SODIUM 139 mmol/l (137-146); TOTAL PROTEIN 7.5 g/dL (6.3-8.2)
[2021-09-25 12:59] LABS: ALKALINE PHOSPHATASE 100 u/l (38-126); BUN 10 mg/dL (8-23); BUN/CREATININE RATIO 20 (12-20 (CALC))
[2021-09-25 13:03] LABS: ACT PARTIAL THROMBO TIME 23.3 SECONDS (20.0-32.5)
[2021-09-25 13:12] LABS: INTERNATIONAL NORMALIZED RATIO 1.2 RATIO (0.7-1.3); PROTHROMBIN TIME 12.6 SECONDS (9.0-12.5)
== END 2021-09-25 16:05 | disposition short-term general hospital (02) ==
LOC: ED 11:26
DX: J90 Pleural effusion, not elsewhere classified (principal); D72.829 Elevated white blood cell count, unspecified; N39.0 Urinary tract infection, site not specified; S00.03XA Contusion of scalp, initial encounter; R07.89 Other chest pain; B96.1 Klebsiella pneumoniae [K. pneumoniae] as the cause of diseases classified elsewhere; F03.90 Unspecified dementia, unspecified severity, without behavioral disturbance, psychotic disturbance, mood disturbance, and anxiety; I10 Essential (primary) hypertension; J44.9 Chronic obstructive pulmonary disease, unspecified; F41.9 Anxiety disorder, unspecified; F32.A Depression, unspecified; W18.39XA Other fall on same level, initial encounter; T41.5X6A Underdosing of therapeutic gases, initial encounter; Z91.128 Patient's intentional underdosing of medication regimen for other reason; Z95.0 Presence of cardiac pacemaker; Z91.81 History of falling; Z99.81 Dependence on supplemental oxygen; Z20.822 Contact with and (suspected) exposure to COVID-19; Y92.511 Restaurant or cafe as the place of occurrence of the external cause
CPT/HCPCS: J1956